=== PATIENT | male | born 1970 | race Caucasian/White ===

== ENCOUNTER 2024-08-26 11:09 | Outpatient (AMB) | payer OTHER, SELFPAY ==
[2024-08-26 11:16] VITALS: BP 144/92; PULSE 61; TEMP 36.7; O2SAT 98; BMI 23.8
--- NOTE | 2024-08-26 11:16 | MHC.OFFWIV ---
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 - The laceration occurred after the patient fell and hit a metal desk, resulting in significant bleeding, just prior to arrival. - The patient did not experience any chest pain, dizziness, or lightheadedness prior to the fall. - he currently denies any nausea, vomiting, headache, light sensitivity or sound sensitivity - The patient was unsure of the last tetanus vaccination. Physical Exam General: Cooperative, healthy appearing, comfortable, no acute distress and well developed Orientation: Patient oriented x3 Limitations: No limitations Head: Normal to inspection, 2.5 cm linear laceration on the right side of the forehead Ears: Hearing grossly normal bilaterally Face and sinus: Normal facial exam Eyes: Appearance normal, both eyes and all related structures Neck: Normal visual inspection, full ROM Respiratory: Normal respiratory effort and able to speak in complete sentences. Skin: No rashes or lesions noted, laceration on head glued and dressed Neuro: Patient oriented x3, CN 2-12 intact, gait normal [facility] Social History Patient Tobacco Use Status: Never used Tobacco Review of Systems Const All systems reviewed & are unremarkable except as noted in HPI and below Physical Exam Vital Signs: Last Vital Signs Temp 98.1 F 08/26/24 11:16 Pulse 61 08/26/24 11:16 BP 144/92 H 08/26/24 11:16 Pulse Ox 98 08/26/24 11:16 Oxygen Delivery Method Room Air 08/26/24 11:16 BMI result Body Mass Index 23.8 Office Procedures AMB Laceration Repair Details: Wound was cleaned and irrigated using sterile saline with Betadine diluted in it. We used a syringe and irrigated the wound thoroughly. It was then dried with sterile gauze and an alcohol wipe was used to clean it 1 more time before applying glue to the wound, edges were approximated nicely. Laceration repair performed by: Grecia Salguero Explained risks and benefits to parent: Yes Informed consent given: Yes Consent signed: No (Right side forehead) Location: right sided forehead Length: 2.5cm Sedation: No Irrigation: saline (with betadine diluted into it) Volume (mls): 50 Preparation: betadine Wound exploration: none (no fb found with copious irrigation) Deep closure: No Skin closure: glue Topical treatment: dry Tetanus toxoid ordered: Yes Patient tolerated procedure: [place] [id number] Repair <2.5cm Procedure code (CPT) selection complete Laceration Repair Procedure Text: After discussion of risk and benefits, written informed consent was obtained. The area was cleaned, prepped, and draped using sterile technique. The wound was debrided of any foreign material or devitalized tissue. Wound edges were approximated and closed using glue. Wound care instructions were given. The patient tolerated the procedure well. The patient was instructed to return for increased redness or red streaking, pain, swelling, pus, fevers, chills, or any other signs or symptoms of infection or worsening. Assessment & Plan Assessment & Plan (1) Laceration of head: Code(s): S01.91XA - Laceration without foreign body of unspecified part of head, initial encounter Qualifiers: Encounter type: initial encounter Location of open wound of head: other part of head Foreign body presence: without foreign body Qualified Code(s): S01.81XA - Laceration without foreign body of other part of head, initial encounter Plan: Patient was informed and verbally consented to the use of an ambient scribe for clinic note documentation during this visit. - The laceration was irrigated with sterile saline with a small amount of Betadine diluted in it then glued to facilitate healing. - The patient was advised to keep the wound clean and dry, avoiding submersion in any water until healed completely. - Was advised to use sunscreen on the area daily for the next year. - A tetanus booster was administered to ensure up-to-date vaccination status. Orders: Orders TDaP Immunization Today S01.91XA - Laceration without foreign body of unspecified part of head, initial encounter AMB Laceration Repair Today S01.81XA - Laceration without foreign body of other part of head, initial encounter Medications: New Boostrix Tdap (diphth,pertus(acell),tetanus) 0.5 mL IM ONCE 0.5 mL 0RF lacerat NS S01.91XA - Laceration without foreign body of unspecified part of head, initial encounter Coding Level of Care Code New Pt Level 4 (28350) Diagnoses Laceration of other part of head without foreign body, initial encounter S01.81XA Encounter type: initial encounter Location of open wound of head: other part of head Foreign body presence: without foreign body CPT Codes Office Procedure - Laceration Repair 1: [id number] Repair <2.5cm ([id number])
== END 2024-08-26 13:40 | disposition home or self-care (01) ==
PROVIDERS: Visit Provider Physician Assistant
DX: S01.81XA Laceration without foreign body of other part of head, initial encounter (principal)

== ENCOUNTER → 2024-08-26 11:09 | Outpatient (BNVA) | payer OTHER, SELFPAY | PROVIDERS: Visit Provider Physician Assistant | DX: S01.81XA Laceration without foreign body of other part of head, initial encounter (principal); W22.8XXA Striking against or struck by other objects, initial encounter; Y93.9 Activity, unspecified; Y92.9 Unspecified place or not applicable; Y99.9 Unspecified external cause status; Z23 Encounter for immunization | CPT/HCPCS: 12011; 90471; 90715 ==